=== PATIENT | female | born 1975 | race African-American/Black ===

== ENCOUNTER 2022-07-13 06:20 | Inpatient (IN) | payer BC ==
[~2022-07-13] VITALS: Ht 162.6 cm; Wt 119.7 kg
[~2022-07-13 06:20] MED LIST: DYCYCLOMINE PO; FAMOTIDINE20 MG PO; GARLIPURE600 MG PO; KETOROLAC TROME10 MG PO; LOSARTAN POTASS25 MG PO; MAGNESIUM250 MG PO; MELOXICAM7.5 MG PO; OMEGA-31000 MG PO; VITAMIN D3125 MCG PO
[2022-07-13] MEDS ORDERED: BUPIVACAINE 0.25% 30ML SDV ONE (08:42)
[2022-07-13] MEDS ORDERED: SUGAMMADEX SODIUM 200 MG/2 ML VIAL IV ONE (10:58)
[2022-07-13] MEDS ORDERED: ACETAMINOPHEN 1000 MG/100 ML 100 ML IV ONE (10:58)
[2022-07-13] MEDS: SCOPOLAMINE 1 MG PATCH TOP SCH ×2 (11:34→12:00)
[2022-07-13] MEDS ORDERED: FENTANYL CITRATE/PF 100MCG/2 ML INJ ONE (12:07)
[2022-07-13] MEDS ORDERED: MIDAZOLAM HCL 2 MG/2 ML VIAL ONE (12:07)
[2022-07-13] MEDS ORDERED: Morphine 10mg syringe 10 MG/ML INJ ONE (12:07)
[2022-07-13] MEDS ORDERED: ONDANSETRON HCL INJ 2MG/ML 2ML 2 MG/ML VIAL ONE (12:08)
[2022-07-13] MEDS ORDERED: KETOROLAC TROMETHAMINE 30 MG/ML VIAL ONE (12:08)
[2022-07-13] MEDS ORDERED: POVIDONE IODINE 0.05% 0.05 % ML PO ONE (12:08)
[2022-07-13] MEDS ORDERED: ROCURONIUM BROMIDE 10 MG/ML 5ML VIAL IV ONE (12:08)
[2022-07-13] MEDS ORDERED: PHENYLEPHRINE HCL 1% 10 MG/ML VIAL ONE (12:08)
[2022-07-13] MEDS ORDERED: DEXAMETHASONE SOD PHOS INJ 4 MG/ML SDV ONE (12:08)
[2022-07-13] MEDS ORDERED: PROPOFOL IV EMULSION 10 MG/ML 20 ML VIAL ONE (12:08)
[2022-07-13] MEDS ORDERED: LIDOCAINE HCL 2% LOCAL INJ 5 ML SDV VIAL INJ ONE (12:08)
[2022-07-13] MEDS ORDERED: SUCCINYLCHOLINE CHLORIDE 20 MG/ML 10ML VIAL ONE (12:08)
[2022-07-13 13:42] VITALS: BP 125/83; PULSE 68; RESP 17; TEMP 97.7; O2SAT 98
[2022-07-13 14:46] VITALS: BP 125/83; PULSE 68; RESP 17; TEMP 97.7; O2SAT 98
[2022-07-13] MEDS: ONDANSETRON HCL INJ 2MG/ML 2ML 2 MG/ML VIAL IV PRN ×2 (14:57→20:24)
[2022-07-13] MEDS: Morphine 2mg Syringe 2 MG/ML SYR IV PRN ×2 (14:58→20:24)
[2022-07-13] MEDS: SODIUM CHLORIDE 0.9% 1000ML 1,000 ML IV SCH ×2 (15:23→15:45)
[2022-07-13 15:33] VITALS: PULSE 88; RESP 18; O2SAT 98
[2022-07-13 15:58] VITALS: BP 137/86; PULSE 66; RESP 17; TEMP 97.8; O2SAT 100
[2022-07-13 19:35] VITALS: PULSE 68; RESP 18; O2SAT 99
[2022-07-13 20:00] VITALS: BP 116/70; PULSE 67; RESP 17; TEMP 98.4; O2SAT 100
[2022-07-13] MEDS: ENOXAPARIN SOD INJ 40 MG/0.4 ML SYR SC SCH (20:25)
[2022-07-14] VITALS (8 sets, daily range): BP systolic 112–138; BP diastolic 70–95; PULSE 63–79; RESP 17–20; TEMP 97.7–98.8; O2SAT 95–100
[2022-07-14] MEDS: ONDANSETRON HCL INJ 2MG/ML 2ML 2 MG/ML VIAL IV PRN ×3 (03:50→19:28)
[2022-07-14] MEDS: Morphine 2mg Syringe 2 MG/ML SYR IV PRN ×2 (03:50→19:34)
[2022-07-14] MEDS: SODIUM CHLORIDE 0.9% 1000ML 1,000 ML IV SCH ×2 (03:55→09:24)
[2022-07-14 05:59] LABS: BASOPHILS % 0.5 % (0.0-1.0); EOSINOPHILS # (AUTO) 0.1 (0.0-0.4); EOSINOPHILS % 0.8 % (0.0-6.0); HEMATOCRIT 31.6 % (34.2-44.1); HEMOGLOBIN 9.7 g/dL (12.0-16.0); LYMPHOCYTES # (AUTO) 2.1 (1.0-3.2); LYMPHOCYTES % 24.3 % (18.0-39.1); MEAN CORPUSCULAR HEMOGLOBIN 23.7 pg (28-32); MEAN CORPUSCULAR HGB CONC 30.7 g/dL (31-35); MEAN CORPUSCULAR VOLUME 77.3 fL (81-99); MONOCYTES # (AUTO) 0.7 (0.2-0.8); MONOCYTES % 8.2 % (4.4-11.3); NEUTROPHILS # (AUTO) 5.8 (2.1-6.9); PLATELET COUNT 314 x10e3/uL (140-360); RED BLOOD COUNT 4.09 x10e6/uL (3.6-5.1); RED CELL DISTRIBUTION WIDTH 18.2 % (11.7-14.4)
[2022-07-14 06:36] LABS: ALBUMIN/GLOBULIN RATIO 0.8 (0.8-2.0); ANION GAP 10.7 mmol/L (8-16); CALCIUM 8.6 mg/dL (8.4-10.2); CREATININE, SERUM 0.71 mg/dL (0.57-1.11); MAGNESIUM 1.8 MG/DL (1.3-2.1); PHOSPHORUS 2.8 MG/DL (2.3-4.7); POTASSIUM 3.7 mmol/L (3.5-5.1)
[2022-07-14] MEDS: HYDROCODONE/APAP 7.5MG-325MG 1 EA TAB PO PRN ×2 (09:24→19:28)
[2022-07-14] MEDS: ENOXAPARIN SOD INJ 40 MG/0.4 ML SYR SC SCH ×2 (09:24→17:24)
[2022-07-14] MEDS: LOSARTAN POTASSIUM 25 MG TAB PO SCH (11:45)
[2022-07-14 18:02] LABS: FERRITIN 17.22 ng/mL (4.63-204.00)
[2022-07-15 00:15] VITALS: BP 113/69; PULSE 67; RESP 16; TEMP 98.5; O2SAT 99
[2022-07-15 03:45] VITALS: BP 113/69; PULSE 67; RESP 16; TEMP 98.5; O2SAT 99
[2022-07-15 04:00] VITALS: BP 126/78; PULSE 71; RESP 16; TEMP 98.5; O2SAT 100
[2022-07-15 06:03] LABS: BASOPHILS % 0.6 % (0.0-1.0); EOSINOPHILS # (AUTO) 0.2 (0.0-0.4); EOSINOPHILS % 3.4 % (0.0-6.0); HEMATOCRIT 33.3 % (34.2-44.1); HEMOGLOBIN 10.1 g/dL (12.0-16.0); LYMPHOCYTES # (AUTO) 1.6 (1.0-3.2); LYMPHOCYTES % 23.2 % (18.0-39.1); MEAN CORPUSCULAR HEMOGLOBIN 23.8 pg (28-32); MEAN CORPUSCULAR HGB CONC 30.3 g/dL (31-35); MEAN CORPUSCULAR VOLUME 78.5 fL (81-99); MONOCYTES # (AUTO) 0.5 (0.2-0.8); MONOCYTES % 7.7 % (4.4-11.3); NEUTROPHILS # (AUTO) 4.4 (2.1-6.9); NEUTROPHILS % 64.8 % (38.7-80.0); PLATELET COUNT 313 x10e3/uL (140-360); RED BLOOD COUNT 4.24 x10e6/uL (3.6-5.1); RED CELL DISTRIBUTION WIDTH 18.3 % (11.7-14.4)
[2022-07-15 06:45] LABS: ALBUMIN 2.9 g/dL (3.5-5.0); ALBUMIN/GLOBULIN RATIO 0.7 (0.8-2.0); ANION GAP 11.9 mmol/L (8-16); CALCIUM 8.5 mg/dL (8.4-10.2); CREATININE, SERUM 0.72 mg/dL (0.57-1.11); POTASSIUM 3.9 mmol/L (3.5-5.1)
[2022-07-15 07:13] VITALS: PULSE 80; RESP 18; O2SAT 96
[2022-07-15 07:58] VITALS: BP 119/77; PULSE 66; RESP 18; TEMP 98.9; O2SAT 100
[2022-07-15 08:00] VITALS: BP 119/77; PULSE 66; RESP 18; TEMP 98.9; O2SAT 100
[2022-07-15] MEDS: LOSARTAN POTASSIUM 25 MG TAB PO SCH (09:00)
[2022-07-15] MEDS: ENOXAPARIN SOD INJ 40 MG/0.4 ML SYR SC SCH (09:03)
[2022-07-15 09:21] LABS: ALBUMIN/GLOBULIN RATIO 0.8 (0.8-2.0); CALCIUM 8.6 mg/dL (8.4-10.2); CREATININE, SERUM 0.73 mg/dL (0.57-1.11)
[2022-07-15] MEDS ORDERED: ONDANSETRON HCL 4 MG ORAL DISINTEGRATING TAB PO PRN (12:15)
== END 2022-07-15 12:37 | disposition home or self-care (01) | DRG 621 ==
LOC: OR 06:20 → PACU V 07:43 → MED/SURG2 13:33
PROVIDERS: ADMIT Internal Medicine; ATTEND Internal Medicine
PROC: 0DB64Z3 Excision of Stomach, Percutaneous Endoscopic Approach, Vertical (ICD-10-PCS; principal; 2022-07-13 09:19)
PROC: 0BQT3ZZ Repair Diaphragm, Percutaneous Approach (ICD-10-PCS; 2022-07-13 09:19)
DX: E66.01 Morbid (severe) obesity due to excess calories (principal); Z68.42 Body mass index [BMI] 45.0-49.9, adult; I10 Essential (primary) hypertension; M79.7 Fibromyalgia; K44.9 Diaphragmatic hernia without obstruction or gangrene; K21.9 Gastro-esophageal reflux disease without esophagitis; K76.0 Fatty (change of) liver, not elsewhere classified; D64.9 Anemia, unspecified
CPT/HCPCS: 0223U; 36415; 80053; 81025; 82607; 82728; 83540; 83735; 84100; 84466; 85025; 94799; J0330; J0690; J1100; J1650; J1885; J2001; J2250; J2270; J2370; J2405; J7030